=== PATIENT | male | born 1950 | race Caucasian/White ===

== ENCOUNTER 2019-11-23 02:25 | Outpatient (CLI) | payer BC, SELFPAY ==
[2019-11-23 17:02] LABS: SARS-CoV-2 RNA PCR Negative
== END 2019-11-23 02:26 | disposition home or self-care (01) ==
LOC: ANHCOVIDDT 02:25
PROVIDERS: PCP Internal Medicine; Visit Provider Internal Medicine Gastroenterology
DX: Z01.812 Encounter for preprocedural laboratory examination (principal); Z20.828 Contact with and (suspected) exposure to other viral communicable diseases
CPT/HCPCS: 87635; C9803; U0003

== ENCOUNTER 2019-11-25 01:34 | Day surgery (SDC) | payer BC, SELFPAY ==
[2019-11-15 13:55] VITALS: BMI 31.4
[2019-11-25 07:59] VITALS: BP 157/81; PULSE 79; RESP 18; TEMP 36.7; O2SAT 99
--- NOTE | 2019-11-25 08:06 | P.HP_ITS ---
History of Present Illness History of Present Illness Consent: Risks, benefits, and alternatives have been discussed and questions answered. Patient agrees to proceed with procedure. Chief complaint: Neoplasm Screening/ Hx Colon Polyps Narrative: José Weston is a 69 year old W male referred for screening colonoscopy secondary history of colonic polyps last colonoscopy was 3 years ago. [facility] Past Medical History Medical History (Updated 11/25/19 @ 08:10 by Silvano Stevens MD) Dyslipidemia History of gout Obesity Surgical History Surgical History (Updated 11/25/19 @ 08:07 by Lazarus Davenport MD) Status post tonsillectomy and adenoidectomy Social History Social History Substance use type: does not use Living arrangements: alone Meds Home Medications and Allergies Home Medications Medication Instructions Recorded Confirmed Type allopurinol 100 mg PO DAILY 11/15/19 11/15/19 History atorvastatin 40 mg PO DAILY 11/15/19 11/25/19 History Allergies Allergy/AdvReac Type Severity Reaction Status Date / Time No Known Allergies Allergy Verified 11/25/19 07:19 Vital Signs Vital Signs - 24 hr 11/25/19 07:59 Temperature 36.7 C Pulse Rate 79 Respiratory Rate 18 Blood Pressure 157/81 H Pulse Oximetry 99 Exam Const: Orientation/consciousness: patient oriented x3 Resp: Auscultation: clear to auscultation bilaterally Cardio: Rate: regular rate Rhythm: regular rhythm Heart sounds: no murmurs GI: GI Palp: Yes Soft to palpation, No Tenderness to palpation present (GI), Yes No hepatosplenomegaly present and No Palpable mass present Auscultation: normal bowel sounds Neuro: General: patient oriented x3 and no focal motor deficits Extrem: General: no pedal edema Assessment and Plan Additional Plan screening colonoscopy secondary history of colonic polyps
--- NOTE | 2019-11-25 08:10 | WPDANESEPPF ---
Anes - Initial Pre Proc Eval Procedure: Operation Date: 11/25/19 08:00 Proposed Procedures p Screening Colonoscopy - Lazarus Davenport MD Date/Time: 11/25/19 08:10 Surgeon: Lazarus Davenport MD Pre Op Diagnosis: Neoplasm Screening/ Hx Colon Polyps Patient Data Age: 69 Gender: M Height: 1.83 m Weight: 106.2 kg Last Vital Signs Temp 36.7 C 11/25/19 07:59 Pulse 79 11/25/19 07:59 Resp 18 11/25/19 07:59 BP 157/81 H 11/25/19 07:59 Pulse Ox 99 11/25/19 07:59 Allergies Allergy/AdvReac Type Severity Reaction Status Date / Time No Known Allergies Allergy Verified 11/25/19 07:19 Home Medications Medication Instructions Recorded Confirmed Type allopurinol 100 mg PO DAILY 11/15/19 11/15/19 History atorvastatin 40 mg PO DAILY 11/15/19 11/25/19 History Patient hx anesthesia problems: none Family hx anesthesia problems: none [facility] Past Medical History Medical History (Updated 11/25/19 @ 08:10 by Silvano Stevens MD) Dyslipidemia History of gout Obesity Surgical History Surgical History (Updated 11/25/19 @ 08:07 by Lazarus Davenport MD) Status post tonsillectomy and adenoidectomy Social History Social History Substance use type: does not use Living arrangements: alone Anes - Eval Final PreProcedure Day of Procedure 11/25/19 08:10 Patient weight: obese Heart: regular rate and rhythm Lungs: clear to auscultation and normal air movement Airway: Mallampati scale class II Neurological: alert and oriented Last oral intake: >/= 8 hours ASA classification: III Emergent: no Anesthetic plan: proceed Anesthesia type and monitoring: general GIVS Informed Consent: The patient's anesthetic plan and its attendant risks and benefits were discussed with the patient/family/POA. Questions were solicited and answers provided to the satisfaction of the patient/family/POA.
[2019-11-25] MEDS: LACTATED RINGERS 1,000 ML 150 ML IV CONT (08:12)
[2019-11-25] MEDS: SIMETHICONE ORAL SUSPENSION 20 MG/0.3 ML 30 ML BOTTLE 0.6 ML IRRIGATION (09:08)
[2019-11-25 09:40] VITALS: BP 88/56; PULSE 81; RESP 26; O2SAT 94
[2019-11-25 09:50] VITALS: BP 103/66; PULSE 95; RESP 24; O2SAT 94
[2019-11-25 10:00] VITALS: BP 108/72; PULSE 78; RESP 17; O2SAT 94
== END 2019-11-25 10:19 | disposition home or self-care (01) ==
PROVIDERS: PCP Internal Medicine; Visit Provider Internal Medicine Gastroenterology
PROC: 0DJD8ZZ Inspection of Lower Intestinal Tract, Via Natural or Artificial Opening Endoscopic (ICD-10-PCS; CPT 45378; principal; 2019-11-25 08:00)
DX: Z12.11 Encounter for screening for malignant neoplasm of colon (principal); D12.4 Benign neoplasm of descending colon; D12.5 Benign neoplasm of sigmoid colon; D12.8 Benign neoplasm of rectum; E78.5 Hyperlipidemia, unspecified; M10.9 Gout, unspecified; E66.9 Obesity, unspecified; Z68.31 Body mass index [BMI] 31.0-31.9, adult
CPT/HCPCS: 45385; 88305; J2370; J2704; J7120

== ENCOUNTER 2025-02-09 00:58 | Day surgery (SDC) | payer MEDICARE, SELFPAY ==
[2025-01-26 10:36] VITALS: BMI 28.5
--- OUTSIDE RECORDS SUMMARY | 2025-02-09 01:01 | XMS_ITS | Data Portability ---
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 [facility] 01/01/2023 08:45:24
--- OUTSIDE RECORDS SUMMARY | 2025-02-09 01:01 | XMS_ITS | Continuity of Care Document ---
Author Organization [place] [facility] Address [address] [place] [address] Care Team Providers Care Greek Professor Name Role Phone REMI SAAVEDRA Primary Care Provider [phone] Assessment Encounter Date Assessment Date Assessment LastModified by Organization Details LastModified Time 12/20/2024 12/20/2024 Convalescing from his hip fracture blood pressure is up a little bit probably because of the pain not going to get too excited about that just yet see me back in about 3 months with blood chemistries continue with his medications Not available 12/20/2024 22:15:31 Plan of Treatment Reminders Order Date Submit Date Provider Last Modified By Organization Details Last Modified Time Details Appointments ANY 15 026 02:00PM Remi Saavedra MD Not available Not available Not available Lab None record ed. Referral None record ed. Procedures None record ed. Surgeries None record ed. Imaging None record ed. Medication Orders None record ed. Patient TargetsNo targets recorded. Patient Instructions Encounter Date Encounter Id Patient Instructions Last Modified By Organization Details Last Modified Time 12/20/2024 [id number] eating healthy foods: care instructions [email or web address] Not available 12/20/2024 17:51:26 Reason for Referral None Reported. Results Created Date Observation Date Name Description Value Unit Range Abnormal Flag Note LastModifiedBy Organization Detail LastModifiedTime 12/10/1912/09/2024 CK (crea michael kinas e), total , serum CK (creatine kinase), total, serum 151 U/L low: 35U/Lh igh: 232U/L Not Available Not Available 12/20/2024 04:49:17 12/10/1912/09/2024 PTT (part ial throm bopla stin time) mixin g study PTT (partial thromboplast in time) mixing study 31.1 text: 25.1 - 36.5 sec Not Available Not Available 12/20/2024 04:49:12/10/1912/09/2024 proth rombi n time prothrombin time 12.2 text: 10.2 - 12.9 sec Not Available Not Available 12/20/2024 04:49:12/10/1912/09/2024 proth rombi n time INR, plasma 1.1 Recom ej d INR Thera peuti c Goals : 2.0-3 .0 Routi ne Thera py 2.5-3 .5 Mecha nical Prost hetic Valve s (High Risk) Not Available Not Available 12/20/2024 04:49:12/10/1912/09/2024 CMP, serum or plasm a glucose, qn [mass/volume ], serum or plasma 113 text: 70 - 99 mg/dL high Not Available Not Available 12/20/2024 04:49:12/10/1912/09/2024 CMP, serum or plasm a BUN (blood urea nitrogen), serum or plasma 13 text: 7 - 18 mg/dL Not Available Not Available 12/20/2024 04:49:12/10/1912/09/2024 CMP, serum or plasm a creatinine, serum or plasma 1.12 text: 0.7 - 1.3 mg/dL Not Available Not Available 12/20/2024 04:49:12/10/1912/09/2024 CMP, serum or plasm a sodium, serum or plasma 137 text: 136 - 145 mmol/L Not Available Not Available 12/20/2024 04:49:12/10/1912/09/2024 CMP, serum or plasm a potassium, serum or plasma 4.3 text: 3.5 - 5.1 mmol/L Not Available Not Available 12/20/2024 04:49:12/10/1912/09/2024 CMP, serum or plasm a chloride, serum or plasma 106 text: 97 - 115 mmol/L Not Available Not Available 12/20/2024 04:49:12/10/1912/09/2024 CMP, serum or plasm a CO2, (carbon dioxide), total, serum or plasma 26.5 text: 21 - 32 mmol/L Not Available Not Available 12/20/2024 04:49:12/10/1912/09/2024 CMP, serum or plasm a calcium, serum or plasma 9.1 text: 8.5 - 10.1 mg/dL Not Available Not Available 12/20/2024 04:49:12/10/1912/09/2024 CMP, serum or plasm a bilirubin, total, serum or plasma 0.7 text: 0.2 - 1.2 mg/dL THIS ASSAY IS NOT RECOM EJ D FOR PATIE NTS UNDER GOING TREAT MENT WITH ELTRO MBOPA G DUE TO THE POTEN TIAL FOR FALSE LY ELEVA OTF RESUL TS. Not Available Not Available 12/20/2024 04:49:12/10/1912/09/2024 CMP, serum or plasm a protein, total, serum 7.4 text: 6.4 - 8.2 g/dL Not Available Not Available 12/20/2024 04:49:12/10/1912/09/2024 CMP, serum or plasm a albumin, serum or plasma 3.9 text: 3.4 - 5.0 g/dL Not Available Not Available 12/20/2024 04:49:12/10/1912/09/2024 CMP, serum or plasm a AST/SGOT (aspartate aminotransfe rase), serum or plasma 20 U/L low: 15U/Lh igh: 37U/L Not Available Not Available 12/20/2024 04:49:12/10/1912/09/2024 CMP, serum or plasm a ALT (alanine aminotransfe rase), serum or plasma 33 U/L low: 16U/Lh igh: 60U/L Not Available Not Available 12/20/2024 04:49:17 12/10/1912/09/2024 CMP, serum or plasm a alkaline phosphatase, serum or plasma 75 U/L low: 50U/Lh igh: 136U/L Not Available Not Available 12/20/2024 04:49:17 12/10/1912/09/2024 CMP, serum or plasm a anion gap, serum or plasma 4.5 text: 2 - 10 mmol/L Not Available Not Available 12/20/2024 04:49:17 12/10/1912/09/2024 CMP, serum or plasm a BUN/creatini ne, ratio, serum 11.6 low: 6high: 26 Not Available Not Available 12/20/2024 04:49:12/10/1912/09/2024 CMP, serum or plasm a albumin/glob ulin, ratio, serum 1.1 text: 1.0 - 2.0 ratio Not Available Not Available 12/20/2024 04:49:17 12/10/1912/09/2024 CMP, serum or plasm a glomerular filtration rate/1.73 sq M predicted, qn, creatinine based formula (CKD-epi 2020), serum or plasma or blood 69 text: >90 mL/min /1.73 M2 low NOTE: eGFR is not calcu lated for patie nts <18 years of age or gende r unkno wn. This is an estim ated GFR calcu latio n using the new CKD EPI creat inine equat ion witho ut race and so does not requi re a corre ction facto r for race. This estim ated GFR shoul d not be used for calcu latin g drug doses . Not Available Not Available 12/20/2024 04:49:17 12/10/1912/09/2024 CMP, serum or plasm a lab interpretati on Abnorm al Not Available Not Available 04:49:17 12/10/1912/09/2024 CBC w/ auto diff WBC, auto, blood 16.2 text: 4.5 - 11.0 x10'3/ uL high Not Available Not Available 12/20/2024 04:49:17 12/10/1912/09/2024 CBC w/ auto diff RBC count, blood 4.64 text: 4.70 - 6.10 x10'6/ uL low Not Available Not Available 12/20/2024 04:49:17 12/10/1912/09/2024 CBC w/ auto diff hemoglobin (Hb), blood 14.6 text: 14.0 - 18.0 g/dL Not Available Not Available 12/20/2024 04:49:12/10/1912/09/2024 CBC w/ auto diff hematocrit, blood 42.6 % low: 43%hig h: 54% low Not Available Not Available 12/20/2024 04:49:12/10/1912/09/2024 CBC w/ auto diff MCV, qn (obs) 91.8 text: 80.0 - 94.0 fL Not Available Not Available 12/20/2024 04:49:12/10/1912/09/2024 CBC w/ auto diff MCH, qn (obs) 31.5 pg low: 27pghi gh: 31pg high Not Available Not Available 12/20/2024 04:49:12/10/1912/09/2024 CBC w/ auto diff mean corpuscular hemoglobin concentratio n, qn, RBC 34.3 text: 32.0 - 36.0 g/dL Not Available Not Available 12/20/2024 04:49:12/10/1912/09/2024 CBC w/ auto diff RDW 12.3 % low: 11.5%h igh: 14.5% Not Available Not Available 12/20/2024 04:49:12/10/1912/09/2024 CBC w/ auto diff platelet count, blood 179 text: 130 - 400 x10'3/ uL Not Available Not Available 12/20/2024 04:49:12/10/1912/09/2024 CBC w/ auto diff platelet mean volume, qn, blood (obs) 12.1 text: 9.3 - 12.2 fL Not Available Not Available 12/20/2024 04:49:12/10/1912/09/2024 CBC w/ auto diff differential cell count method, blood (obs) AUTOMA OTF DIFFER ENTIAL Not Available Not Available 04:49:12/10/1912/09/2024 CBC w/ auto diff neutrophils/ 100 leukocytes, automated, blood (obs) 89.4 % Not Available Not Available 12/20/2024 04:49:12/10/1912/09/2024 CBC w/ auto diff lymphocytes/ 100 leukocytes, automated, blood (obs) 6.5 % Not Available Not Available 12/20/2024 04:49:12/10/1912/09/2024 CBC w/ auto diff monocytes/10 0 leukocytes, automated, blood (obs) 3.4 % Not Available Not Available 12/20/2024 04:49:12/10/1912/09/2024 CBC w/ auto diff eosinophils/ 100 leukocytes, automated, blood (obs) 0.1 % Not Available Not Available 12/20/2024 04:49:12/10/1912/09/2024 CBC w/ auto diff basophils/10 0 leukocytes, automated, blood (obs) 0.3 % Not Available Not Available 12/20/2024 04:49:12/10/1912/09/2024 CBC w/ auto diff immature granulocytes /100 leukocytes, automated, blood (obs) 0.3 % Not Available Not Available 12/20/2024 04:49:12/10/1912/09/2024 CBC w/ auto diff neutrophils, count, blood (obs) 14.48 text: 1.80 - 7.70 x10'3/ uL high Not Available Not Available 12/20/2024 04:49:12/10/1912/09/2024 CBC w/ auto diff lymphocytes, blood (obs) 1.06 text: 1.00 - 4.80 x10'3/ uL Not Available Not Available 12/20/2024 04:49:12/10/1912/09/2024 CBC w/ auto diff monocytes, count, blood (obs) 0.55 text: 0.30 - 0.82 x10'3/ uL Not Available Not Available 12/20/2024 04:49:12/10/1912/09/2024 CBC w/ auto diff eosinophils, quant, blood 0.01 text: 0.04 - 0.54 x10'3/ uL low Not Available Not Available 12/20/2024 04:49:12/10/1912/09/2024 CBC w/ auto diff basophils, count, blood (obs) 0.05 text: 0.01 - 0.08 x10'3/ uL Not Available Not Available 12/20/2024 04:49:17 12/10/1912/09/2024 CBC w/ auto diff immature granulocytes count, blood 0.05 text: 0.00 - 0.49 x10'3/ uL Not Available Not Available 12/20/2024 04:49:17 12/10/19 25 12/09/2024 CBC w/ auto diff lab interpretati on Abnorm al Not Available Not Available 04:49:17 12/11/1912/10/2024 urina lysis , dipst ick, refle x micro collection method, unspecified specimen (obs) URINE CLEAN CATCH Not Available Not Available 04:49:18 12/11/1912/10/2024 urina lysis , dipst ick, refle x micro color, urine (obs) LIGHT YELLOW Not Available Not Available 04:49:18 12/11/1912/10/2024 urina lysis , dipst ick, refle x micro clarity of urine (obs) CLEAR Not Available Not Available 12/20/2024 04:49:18 12/11/1912/10/2024 urina lysis , dipst ick, refle x micro specific gravity, urine 1.023 low: 1.001h igh: 1.03 Not Available Not Available 12/20/2024 04:49:18 12/11/1912/10/2024 urina lysis , dipst ick, refle x micro pH, urine 6 low: 5high: 9 Not Available Not Available 12/20/2024 04:49:18 12/11/1912/10/2024 urina lysis , dipst ick, refle x micro leukocytes, count, test strip, urine (obs) NEGATI VE text: negati ve Not Available Not Available 12/20/2024 04:49:18 12/11/1912/10/2024 urina lysis , dipst ick, refle x micro nitrite, qual, urine NEGATI VE text: negati ve Not Available Not Available 12/20/2024 04:49:18 12/11/1912/10/2024 urina lysis , dipst ick, refle x micro protein random (U) NEGATI VE text: <30 mg/dL Not Available Not Available 12/20/2024 04:49:18 12/11/1912/10/2024 urina lysis , dipst ick, refle x micro glucose, qn [mass/volume ], urine NORMAL text: normal mg/dL Not Available Not Available 12/20/2024 04:49:18 12/11/1912/10/2024 urina lysis , dipst ick, refle x micro ketones, qn, test strip, urine 40 text: negati ve mg/dL abnormal Not Available Not Available 12/20/2024 04:49:18 12/11/1912/10/2024 urina lysis , dipst ick, refle x micro urobilinogen , qn, test strip, urine NORMAL text: normal mg/dL Not Available Not Available 12/20/2024 04:49:18 12/11/1912/10/2024 urina lysis , dipst ick, refle x micro bilirubin, total, quant, urine NEGATI VE text: negati ve mg/dL Not Available Not Available 12/20/2024 04:49:18 12/11/1912/10/2024 urina lysis , dipst ick, refle x micro erythrocytes , count, automated test strip, urine (obs) NEGATI VE text: negati ve Not Available Not Available 12/20/2024 04:49:18 12/11/1912/10/2024 urina lysis , dipst ick, refle x micro lab interpretati on Abnorm al Not Available Not Available 04:49:18 12/11/1912/11/2024 gluco se, QN, test strip , auto, blood glucose, qn, test strip, auto, blood 123 mg/dL low: 70mg/d Lhigh: 99mg/d L high Not Available Not Available 12/20/2024 04:49:18 12/11/1912/11/2024 gluco se, QN, test strip , auto, blood lab interpretati on Abnorm al Not Available Not Available 04:49:18 12/11/1912/10/2024 type + scree n, blood ABO/Rh AB POSITI VE Not Available Not Available 04:49:12/11/1912/10/2024 type + scree n, blood antibody screen, serum or plasma NEGATI VE Not Available Not Available 04:49:18 12/11/1912/10/2024 type + scree n, blood specimen expiration date, blood (obs) 2024,2 359 Not Available Not Available 04:49:12/11/1912/10/2024 CMP, serum or plasm a glucose, qn [mass/volume ], serum or plasma 104 text: 70 - 99 mg/dL high Not Available Not Available 12/20/2024 04:49:12/11/1912/10/2024 CMP, serum or plasm a BUN (blood urea nitrogen), serum or plasma 12 text: 7 - 18 mg/dL Not Available Not Available 12/20/2024 04:49:18 12/11/1912/10/2024 CMP, serum or plasm a creatinine, serum or plasma 0.94 text: 0.7 - 1.3 mg/dL Not Available Not Available 12/20/2024 04:49:12/11/1912/10/2024 CMP, serum or plasm a sodium, serum or plasma 137 text: 136 - 145 mmol/L Not Available Not Available 12/20/2024 04:49:12/11/1912/10/2024 CMP, serum or plasm a potassium, serum or plasma 4 text: 3.5 - 5.1 mmol/L Not Available Not Available 12/20/2024 04:49:12/11/1912/10/2024 CMP, serum or plasm a chloride, serum or plasma 106 text: 97 - 115 mmol/L Not Available Not Available 12/20/2024 04:49:12/11/1912/10/2024 CMP, serum or plasm a CO2, (carbon dioxide), total, serum or plasma 24.9 text: 21 - 32 mmol/L Not Available Not Available 12/20/2024 04:49:12/11/1912/10/2024 CMP, serum or plasm a calcium, serum or plasma 8.7 text: 8.5 - 10.1 mg/dL Not Available Not Available 12/20/2024 04:49:18 12/11/1912/10/2024 CMP, serum or plasm a bilirubin, total, serum or plasma 1.6 text: 0.2 - 1.2 mg/dL high THIS ASSAY IS NOT RECOM EJ D FOR PATIE NTS UNDER GOING TREAT MENT WITH ELTRO MBOPA G DUE TO THE POTEN TIAL FOR FALSE LY ELEVA OTF RESUL TS. Not Available Not Available 12/20/2024 04:49:18 12/11/1912/10/2024 CMP, serum or plasm a protein, total, serum 6.7 text: 6.4 - 8.2 g/dL Not Available Not Available 12/20/2024 04:49:18 12/11/1912/10/2024 CMP, serum or plasm a albumin, serum or plasma 3.4 text: 3.4 - 5.0 g/dL Not Available Not Available 12/20/2024 04:49:18 12/11/1912/10/2024 CMP, serum or plasm a AST/SGOT (aspartate aminotransfe rase), serum or plasma 20 U/L low: 15U/Lh igh: 37U/L Not Available Not Available 12/20/2024 04:49:18 12/11/1912/10/2024 CMP, serum or plasm a ALT (alanine aminotransfe rase), serum or plasma 30 U/L low: 16U/Lh igh: 60U/L Not Available Not Available 12/20/2024 04:49:18 12/11/1912/10/2024 CMP, serum or plasm a alkaline phosphatase, serum or plasma 71 U/L low: 50U/Lh igh: 136U/L Not Available Not Available 12/20/2024 04:49:18 12/11/1912/10/2024 CMP, serum or plasm a anion gap, serum or plasma 6.1 text: 2 - 10 mmol/L Not Available Not Available 12/20/2024 04:49:18 12/11/1912/10/2024 CMP, serum or plasm a BUN/creatini ne, ratio, serum 12.8 low: 6high: 26 Not Available Not Available 12/20/2024 04:49:18 12/11/1912/10/2024 CMP, serum or plasm a albumin/glob ulin, ratio, serum 1 text: 1.0 - 2.0 ratio Not Available Not Available 12/20/2024 04:49:18 12/11/1912/10/2024 CMP, serum or plasm a glomerular filtration rate/1.73 sq M predicted, qn, creatinine based formula (CKD-epi 2020), serum or plasma or blood 85 text: >90 mL/min /1.73 M2 low NOTE: eGFR is not calcu lated for patie nts <18 years of age or gende r unkno wn. This is an estim ated GFR calcu latio n using the new CKD EPI creat inine equat ion witho ut race and so does not requi re a corre ction facto r for race. This estim ated GFR shoul d not be used for calcu latin g drug doses . Not Available Not Available 12/20/2024 04:49:18 12/11/1912/10/2024 CMP, serum or plasm a lab interpretati on Abnorm al Not Available Not Available 04:49:18 12/11/1912/10/2024 CBC w/ auto diff WBC, auto, blood 11.54 text: 4.5 - 11.0 x10'3/ uL high Not Available Not Available 12/20/2024 04:49:17 12/11/1912/10/2024 CBC w/ auto diff RBC count, blood 4.6 text: 4.70 - 6.10 x10'6/ uL low Not Available Not Available 12/20/2024 04:49:17 12/11/1912/10/2024 CBC w/ auto diff hemoglobin (Hb), blood 14.4 text: 14.0 - 18.0 g/dL Not Available Not Available 12/20/2024 04:49:17 12/11/1912/10/2024 CBC w/ auto diff hematocrit, blood 42.5 % low: 43%hig h: 54% low Not Available Not Available 12/20/2024 04:49:17 12/11/1912/10/2024 CBC w/ auto diff MCV, qn (obs) 92.4 text: 80.0 - 94.0 fL Not Available Not Available 12/20/2024 04:49:12/11/1912/10/2024 CBC w/ auto diff MCH, qn (obs) 31.3 pg low: 27pghi gh: 31pg high Not Available Not Available 12/20/2024 04:49:12/11/1912/10/2024 CBC w/ auto diff mean corpuscular hemoglobin concentratio n, qn, RBC 33.9 text: 32.0 - 36.0 g/dL Not Available Not Available 12/20/2024 04:49:12/11/1912/10/2024 CBC w/ auto diff RDW 12.4 % low: 11.5%h igh: 14.5% Not Available Not Available 12/20/2024 04:49:12/11/1912/10/2024 CBC w/ auto diff platelet count, blood 139 text: 130 - 400 x10'3/ uL Not Available Not Available 12/20/2024 04:49:17 12/11/1912/10/2024 CBC w/ auto diff platelet mean volume, qn, blood (obs) 12.3 text: 9.3 - 12.2 fL high Not Available Not Available 12/20/2024 04:49:12/11/1912/10/2024 CBC w/ auto diff differential cell count method, blood (obs) AUTOMA OTF DIFFER ENTIAL Not Available Not Available 04:49:12/11/1912/10/2024 CBC w/ auto diff neutrophils/ 100 leukocytes, automated, blood (obs) 77.4 % Not Available Not Available 12/20/2024 04:49:12/11/19 25 12/10/2024 CBC w/ auto diff lymphocytes/ 100 leukocytes, automated, blood (obs) 14 % Not Available Not Available 12/20/2024 04:49:12/11/1912/10/2024 CBC w/ auto diff monocytes/10 0 leukocytes, automated, blood (obs) 6.6 % Not Available Not Available 12/20/2024 04:49:12/11/1912/10/2024 CBC w/ auto diff eosinophils/ 100 leukocytes, automated, blood (obs) 1.3 % Not Available Not Available 12/20/2024 04:49:12/11/1912/10/2024 CBC w/ auto diff basophils/10 0 leukocytes, automated, blood (obs) 0.4 % Not Available Not Available 12/20/2024 04:49:12/11/1912/10/2024 CBC w/ auto diff immature granulocytes /100 leukocytes, automated, blood (obs) 0.3 % Not Available Not Available 12/20/2024 04:49:12/11/1912/10/2024 CBC w/ auto diff neutrophils, count, blood (obs) 8.93 text: 1.80 - 7.70 x10'3/ uL high Not Available Not Available 12/20/2024 04:49:12/11/1912/10/2024 CBC w/ auto diff lymphocytes, blood (obs) 1.62 text: 1.00 - 4.80 x10'3/ uL Not Available Not Available 12/20/2024 04:49:12/11/1912/10/2024 CBC w/ auto diff monocytes, count, blood (obs) 0.76 text: 0.30 - 0.82 x10'3/ uL Not Available Not Available 12/20/2024 04:49:12/11/1912/10/2024 CBC w/ auto diff eosinophils, quant, blood 0.15 text: 0.04 - 0.54 x10'3/ uL Not Available Not Available 12/20/2024 04:49:12/11/1912/10/2024 CBC w/ auto diff basophils, count, blood (obs) 0.05 text: 0.01 - 0.08 x10'3/ uL Not Available Not Available 12/20/2024 04:49:12/11/1912/10/2024 CBC w/ auto diff immature granulocytes count, blood 0.03 text: 0.00 - 0.49 x10'3/ uL Not Available Not Available 12/20/2024 04:49:12/11/1912/10/2024 CBC w/ auto diff lab interpretati on Abnorm al Not Available Not Available 04:49:17 12/12/19 25 12/11/2024 CBC w/ auto diff WBC, auto, blood 19.2 text: 4.5 - 11.0 x10'3/ uL high Not Available Not Available 12/20/2024 04:49:18 12/12/19 25 12/11/2024 CBC w/ auto diff RBC count, blood 4.34 text: 4.70 - 6.10 x10'6/ uL low Not Available Not Available 12/20/2024 04:49:18 12/12/19 25 12/11/2024 CBC w/ auto diff hemoglobin (Hb), blood 13.7 text: 14.0 - 18.0 g/dL low Not Available Not Available 12/20/2024 04:49:18 12/12/19 25 12/11/2024 CBC w/ auto diff hematocrit, blood 40.8 % low: 43%hig h: 54% low Not Available Not Available 12/20/2024 04:49:18 12/12/1912/11/2024 CBC w/ auto diff MCV, qn (obs) 94 text: 80.0 - 94.0 fL Not Available Not Available 12/20/2024 04:49:18 12/12/1912/11/2024 CBC w/ auto diff MCH, qn (obs) 31.6 pg low: 27pghi gh: 31pg high Not Available Not Available 12/20/2024 04:49:18 12/12/1912/11/2024 CBC w/ auto diff mean corpuscular hemoglobin concentratio n, qn, RBC 33.6 text: 32.0 - 36.0 g/dL Not Available Not Available 12/20/2024 04:49:18 12/12/1912/11/2024 CBC w/ auto diff RDW 12.4 % low: 11.5%h igh: 14.5% Not Available Not Available 12/20/2024 04:49:18 12/12/1912/11/2024 CBC w/ auto diff platelet count, blood 190 text: 130 - 400 x10'3/ uL Not Available Not Available 12/20/2024 04:49:12/12/1912/11/2024 CBC w/ auto diff platelet mean volume, qn, blood (obs) 12.9 text: 9.3 - 12.2 fL high Not Available Not Available 12/20/2024 04:49:12/12/1912/11/2024 CBC w/ auto diff differential cell count method, blood (obs) AUTOMA OFT DIFFER ENTIAL Not Available Not Available 04:49:12/12/1912/11/2024 CBC w/ auto diff neutrophils/ 100 leukocytes, automated, blood (obs) 84 % Not Available Not Available 12/20/2024 04:49:12/12/1912/11/2024 CBC w/ auto diff lymphocytes/ 100 leukocytes, automated, blood (obs) 9.8 % Not Available Not Available 12/20/2024 04:49:12/12/1912/11/2024 CBC w/ auto diff monocytes/10 0 leukocytes, automated, blood (obs) 5.4 % Not Available Not Available 12/20/2024 04:49:12/12/1912/11/2024 CBC w/ auto diff eosinophils/ 100 leukocytes, automated, blood (obs) 0.1 % Not Available Not Available 12/20/2024 04:49:12/12/1912/11/2024 CBC w/ auto diff basophils/10 0 leukocytes, automated, blood (obs) 0.3 % Not Available Not Available 12/20/2024 04:49:12/12/1912/11/2024 CBC w/ auto diff immature granulocytes /100 leukocytes, automated, blood (obs) 0.4 % Not Available Not Available 12/20/2024 04:49:12/12/1912/11/2024 CBC w/ auto diff neutrophils, count, blood (obs) 16.13 text: 1.80 - 7.70 x10'3/ uL high Not Available Not Available 12/20/2024 04:49:12/12/1912/11/2024 CBC w/ auto diff lymphocytes, blood (obs) 1.88 text: 1.00 - 4.80 x10'3/ uL Not Available Not Available 12/20/2024 04:49:12/12/1912/11/2024 CBC w/ auto diff monocytes, count, blood (obs) 1.04 text: 0.30 - 0.82 x10'3/ uL high Not Available Not Available 12/20/2024 04:49:12/12/1912/11/2024 CBC w/ auto diff eosinophils, quant, blood 0.02 text: 0.04 - 0.54 x10'3/ uL low Not Available Not Available 12/20/2024 04:49:12/12/1912/11/2024 CBC w/ auto diff basophils, count, blood (obs) 0.05 text: 0.01 - 0.08 x10'3/ uL Not Available Not Available 12/20/2024 04:49:12/12/1912/11/2024 CBC w/ auto diff immature granulocytes count, blood 0.08 text: 0.00 - 0.49 x10'3/ uL Not Available Not Available 12/20/2024 04:49:12/12/1912/11/2024 CBC w/ auto diff lab interpretati on Abnorm al Not Available Not Available 04:49:12/12/1912/11/2024 CMP, serum or plasm a glucose, qn [mass/volume ], serum or plasma 107 text: 70 - 99 mg/dL high Not Available Not Available 12/20/2024 04:49:12/12/1912/11/2024 CMP, serum or plasm a BUN (blood urea nitrogen), serum or plasma 15 text: 7 - 18 mg/dL Not Available Not Available 12/20/2024 04:49:12/12/1912/11/2024 CMP, serum or plasm a creatinine, serum or plasma 0.98 text: 0.7 - 1.3 mg/dL Not Available Not Available 12/20/2024 04:49:12/12/1912/11/2024 CMP, serum or plasm a sodium, serum or plasma 135 text: 136 - 145 mmol/L low Not Available Not Available 12/20/2024 04:49:12/12/1912/11/2024 CMP, serum or plasm a potassium, serum or plasma 4.8 text: 3.5 - 5.1 mmol/L Not Available Not Available 12/20/2024 04:49:12/12/1912/11/2024 CMP, serum or plasm a chloride, serum or plasma 105 text: 97 - 115 mmol/L Not Available Not Available 12/20/2024 04:49:12/12/1912/11/2024 CMP, serum or plasm a CO2, (carbon dioxide), total, serum or plasma 21.3 text: 21 - 32 mmol/L Not Available Not Available 12/20/2024 04:49:12/12/1912/11/2024 CMP, serum or plasm a calcium, serum or plasma 8.3 text: 8.5 - 10.1 mg/dL low Not Available Not Available 12/20/2024 04:49:12/12/1912/11/2024 CMP, serum or plasm a bilirubin, total, serum or plasma 1.2 text: 0.2 - 1.2 mg/dL THIS ASSAY IS NOT RECOM EJ D FOR PATIE NTS UNDER GOING TREAT MENT WITH ELTRO MBOPA G DUE TO THE POTEN TIAL FOR FALSE LY ELEVA OTF RESUL TS. Not Available Not Available 12/20/2024 04:49:12/12/1912/11/2024 CMP, serum or plasm a protein, total, serum 6.8 text: 6.4 - 8.2 g/dL Not Available Not Available 12/20/2024 04:49:12/12/1912/11/2024 CMP, serum or plasm a albumin, serum or plasma 3.2 text: 3.4 - 5.0 g/dL low Not Available Not Available 12/20/2024 04:49:12/12/1912/11/2024 CMP, serum or plasm a AST/SGOT (aspartate aminotransfe rase), serum or plasma 23 U/L low: 15U/Lh igh: 37U/L Not Available Not Available 12/20/2024 04:49:12/12/1912/11/2024 CMP, serum or plasm a ALT (alanine aminotransfe rase), serum or plasma 27 U/L low: 16U/Lh igh: 60U/L Not Available Not Available 12/20/2024 04:49:18 12/12/1912/11/2024 CMP, serum or plasm a alkaline phosphatase, serum or plasma 71 U/L low: 50U/Lh igh: 136U/L Not Available Not Available 12/20/2024 04:49:18 12/12/1912/11/2024 CMP, serum or plasm a anion gap, serum or plasma 8.7 text: 2 - 10 mmol/L Not Available Not Available 12/20/2024 04:49:12/12/1912/11/2024 CMP, serum or plasm a BUN/creatini ne, ratio, serum 15.3 low: 6high: 26 Not Available Not Available 12/20/2024 04:49:12/12/1912/11/2024 CMP, serum or plasm a albumin/glob ulin, ratio, serum 0.9 text: 1.0 - 2.0 ratio low Not Available Not Available 12/20/2024 04:49:12/12/1912/11/2024 CMP, serum or plasm a glomerular filtration rate/1.73 sq M predicted, qn, creatinine based formula (CKD-epi 2020), serum or plasma or blood 80 text: >90 mL/min /1.73 M2 low NOTE: eGFR is not calcu lated for patie nts <18 years of age or gende r unkno wn. This is an estim ated GFR calcu latio n using the new CKD EPI creat inine equat ion witho ut race and so does not requi re a corre ction facto r for race. This estim ated GFR shoul d not be used for calcu latin g drug doses . Not Available Not Available 12/20/2024 04:49:12/12/1912/11/2024 CMP, serum or plasm a lab interpretati on Abnorm al Not Available Not Available 04:49:12/13/1912/12/2024 CMP, serum or plasm a glucose, qn [mass/volume ], serum or plasma 105 text: 70 - 99 mg/dL high Not Available Not Available 12/20/2024 04:49:18 12/13/1912/12/2024 CMP, serum or plasm a BUN (blood urea nitrogen), serum or plasma 23 text: 7 - 18 mg/dL high Not Available Not Available 12/20/2024 04:49:12/13/1912/12/2024 CMP, serum or plasm a creatinine, serum or plasma 1.12 text: 0.7 - 1.3 mg/dL Not Available Not Available 12/20/2024 04:49:12/13/1912/12/2024 CMP, serum or plasm a sodium, serum or plasma 138 text: 136 - 145 mmol/L Not Available Not Available 12/20/2024 04:49:12/13/1912/12/2024 CMP, serum or plasm a potassium, serum or plasma 3.9 text: 3.5 - 5.1 mmol/L Not Available Not Available 12/20/2024 04:49:12/13/1912/12/2024 CMP, serum or plasm a chloride, serum or plasma 107 text: 97 - 115 mmol/L Not Available Not Available 12/20/2024 04:49:12/13/1912/12/2024 CMP, serum or plasm a CO2, (carbon dioxide), total, serum or plasma 24.7 text: 21 - 32 mmol/L Not Available Not Available 12/20/2024 04:49:12/13/1912/12/2024 CMP, serum or plasm a calcium, serum or plasma 8.8 text: 8.5 - 10.1 mg/dL Not Available Not Available 12/20/2024 04:49:12/13/1912/12/2024 CMP, serum or plasm a bilirubin, total, serum or plasma 0.9 text: 0.2 - 1.2 mg/dL THIS ASSAY IS NOT RECOM EJ D FOR PATIE NTS UNDER GOING TREAT MENT WITH ELTRO MBOPA G DUE TO THE POTEN TIAL FOR FALSE LY ELEVA OTF RESUL TS. Not Available Not Available 12/20/2024 04:49:12/13/1912/12/2024 CMP, serum or plasm a protein, total, serum 6.8 text: 6.4 - 8.2 g/dL Not Available Not Available 12/20/2024 04:49:12/13/1912/12/2024 CMP, serum or plasm a albumin, serum or plasma 3.2 text: 3.4 - 5.0 g/dL low Not Available Not Available 12/20/2024 04:49:18 12/13/1912/12/2024 CMP, serum or plasm a AST/SGOT (aspartate aminotransfe rase), serum or plasma 22 U/L low: 15U/Lh igh: 37U/L Not Available Not Available 12/20/2024 04:49:18 12/13/1912/12/2024 CMP, serum or plasm a ALT (alanine aminotransfe rase), serum or plasma 23 U/L low: 16U/Lh igh: 60U/L Not Available Not Available 12/20/2024 04:49:18 12/13/1912/12/2024 CMP, serum or plasm a alkaline phosphatase, serum or plasma 65 U/L low: 50U/Lh igh: 136U/L Not Available Not Available 12/20/2024 04:49:18 12/13/1912/12/2024 CMP, serum or plasm a anion gap, serum or plasma 6.3 text: 2 - 10 mmol/L Not Available Not Available 12/20/2024 04:49:18 12/13/1912/12/2024 CMP, serum or plasm a BUN/creatini ne, ratio, serum 20.5 low: 6high: 26 Not Available Not Available 12/20/2024 04:49:18 12/13/1912/12/2024 CMP, serum or plasm a albumin/glob ulin, ratio, serum 0.9 text: 1.0 - 2.0 ratio low Not Available Not Available 12/20/2024 04:49:18 12/13/1912/12/2024 CMP, serum or plasm a glomerular filtration rate/1.73 sq M predicted, qn, creatinine based formula (CKD-epi 2020), serum or plasma or blood 69 text: >90 mL/min /1.73 M2 low NOTE: eGFR is not calcu lated for patie nts <18 years of age or gende r unkno wn. This is an estim ated GFR calcu latio n using the new CKD EPI creat inine equat ion witho ut race and so does not requi re a corre ction facto r for race. This estim ated GFR shoul d not be used for calcu latin g drug doses . Not Available Not Available 12/20/2024 04:49:18 12/13/1912/12/2024 CMP, serum or plasm a lab interpretati on Abnorm al Not Available Not Available 04:49:18 12/13/1912/12/2024 CBC w/ auto diff WBC, auto, blood 12.91 text: 4.5 - 11.0 x10'3/ uL high Not Available Not Available 12/20/2024 04:49:18 12/13/19 25 12/12/2024 CBC w/ auto diff RBC count, blood 4.18 text: 4.70 - 6.10 x10'6/ uL low Not Available Not Available 12/20/2024 04:49:18 12/13/19 25 12/12/2024 CBC w/ auto diff hemoglobin (Hb), blood 13.1 text: 14.0 - 18.0 g/dL low Not Available Not Available 12/20/2024 04:49:18 12/13/19 25 12/12/2024 CBC w/ auto diff hematocrit, blood 39 % low: 43%hig h: 54% low Not Available Not Available 12/20/2024 04:49:18 12/13/1912/12/2024 CBC w/ auto diff MCV, qn (obs) 93.3 text: 80.0 - 94.0 fL Not Available Not Available 12/20/2024 04:49:18 12/13/19 25 12/12/2024 CBC w/ auto diff MCH, qn (obs) 31.3 pg low: 27pghi gh: 31pg high Not Available Not Available 12/20/2024 04:49:18 12/13/1912/12/2024 CBC w/ auto diff mean corpuscular hemoglobin concentratio n, qn, RBC 33.6 text: 32.0 - 36.0 g/dL Not Available Not Available 12/20/2024 04:49:18 12/13/19 25 12/12/2024 CBC w/ auto diff RDW 12.7 % low: 11.5%h igh: 14.5% Not Available Not Available 12/20/2024 04:49:12/13/19 25 12/12/2024 CBC w/ auto diff platelet count, blood 145 text: 130 - 400 x10'3/ uL Not Available Not Available 12/20/2024 04:49:18 12/13/19 25 12/12/2024 CBC w/ auto diff platelet mean volume, qn, blood (obs) 12.1 text: 9.3 - 12.2 fL Not Available Not Available 12/20/2024 04:49:18 12/13/19 25 12/12/2024 CBC w/ auto diff differential cell count method, blood (obs) AUTOMA OTF DIFFER ENTIAL Not Available Not Available 04:49:12/13/1912/12/2024 CBC w/ auto diff neutrophils/ 100 leukocytes, automated, blood (obs) 69.4 % Not Available Not Available 12/20/2024 04:49:18 12/13/19 25 12/12/2024 CBC w/ auto diff lymphocytes/ 100 leukocytes, automated, blood (obs) 18.3 % Not Available Not Available 12/20/2024 04:49:18 12/13/19 25 12/12/2024 CBC w/ auto diff monocytes/10 0 leukocytes, automated, blood (obs) 7.8 % Not Available Not Available 12/20/2024 04:49:12/13/19 25 12/12/2024 CBC w/ auto diff eosinophils/ 100 leukocytes, automated, blood (obs) 3.6 % Not Available Not Available 12/20/2024 04:49:18 12/13/19 25 12/12/2024 CBC w/ auto diff basophils/10 0 leukocytes, automated, blood (obs) 0.6 % Not Available Not Available 12/20/2024 04:49:12/13/19 25 12/12/2024 CBC w/ auto diff immature granulocytes /100 leukocytes, automated, blood (obs) 0.3 % Not Available Not Available 12/20/2024 04:49:18 12/13/19 25 12/12/2024 CBC w/ auto diff neutrophils, count, blood (obs) 8.96 text: 1.80 - 7.70 x10'3/ uL high Not Available Not Available 12/20/2024 04:49:18 12/13/19 25 12/12/2024 CBC w/ auto diff lymphocytes, blood (obs) 2.36 text: 1.00 - 4.80 x10'3/ uL Not Available Not Available 12/20/2024 04:49:18 12/13/19 25 12/12/2024 CBC w/ auto diff monocytes, count, blood (obs) 1.01 text: 0.30 - 0.82 x10'3/ uL high Not Available Not Available 12/20/2024 04:49:18 12/13/19 25 12/12/2024 CBC w/ auto diff eosinophils, quant, blood 0.46 text: 0.04 - 0.54 x10'3/ uL Not Available Not Available 12/20/2024 04:49:18 12/13/19 25 12/12/2024 CBC w/ auto diff basophils, count, blood (obs) 0.08 text: 0.01 - 0.08 x10'3/ uL Not Available Not Available 12/20/2024 04:49:18 12/13/19 25 12/12/2024 CBC w/ auto diff immature granulocytes count, blood 0.04 text: 0.00 - 0.49 x10'3/ uL Not Available Not Available 12/20/2024 04:49:18 12/13/1912/12/2024 CBC w/ auto diff lab interpretati on Abnorm al Not Available Not Available 04:49:18 Result Notes None recorded. Problems Name Problem SNOMED Code Status Onset Date Resolution Date Notes Provider Name and Address Organization Details Recorded Time Screening for malignant neoplasm of prostate Active 2023 DANIEL Jackson, [place] - [facility] 4 16:09:52 Gout 64942570 Active 2023 Reese Zaman [place] null, [place] - [facility] 4 16:09:53 Hyperlipidemia 01667566 Active 2023 Reese Z[place] [facility] 4 16:09:54 Contact dermatitis 58239244 Active 2023 Reese Zaman [place], [place] - [facility] 4 16:09:57 Essential hypertension 25019078 Active 2024 Reese Zaman MA null, [place] - [facility] 5 14:54:05 Problem Notes None recorded. Medical Equipment None Reported. Allergies Allergen ID Allergen Name Allergen Category Reaction Reaction Severity Criticality Documentation Date Start Date Code Code System Note Provider Name and Address Organization Details Recorded Time 031483 mirtazapi ne medicatio n Not available Not available Not available 07/21/2023 31072 RxNorm Emely Weber MA null, [place] - [facility] 4 14:45:28 Medications Name Sig Start Date Stop Date Status Note LastModified by Organization Details LastModified Time atorvastati n 40 mg tablet TAKE 1 TABLET BY MOUTH DAILY 2024 active Not Available Not Available Not Avai lable bupropion HCl SR 150 mg tablet,12 hr sustained-r elease 12/20 completed Not Available Not Available Not Available prednisone 10 mg tablet TAKE 2 TABLETS BY MOUTH EVERY DAY FOR 5 DAYS 01/18 completed Not Available Not Available Not Available citalopram 40 mg tablet 12/20 completed Not Available Not Available Not Available clonazepam 0.5 mg tablet 07/19 completed Not Available Not Available Not Available allopurinol 100 mg tablet TAKE 1 TABLET BY MOUTH EVERY DAY 12/20 completed Not Available Not Available Not Available tramadol 50 mg tablet 12/20 completed Not Available Not Available Not Available Kenalog 40 mg/mL suspension for injection Take 2 mL every day by injection route for 1 day. 01/18 completed Not Available Not Available Not Available amoxicillin 875 mg tablet TAKE 1 TABLET BY MOUTH TWICE DAILY FOR 7 DAYS 01/18 completed Not Available Not Available Not Available famotidine 20 mg tablet TAKE 1 TABLET BY MOUTH TWICE DAILY FOR 7 DAYS 01/18 completed Not Available Not Available Not Available losartan 25 mg tablet TAKE 1 TABLET BY MOUTH EVERY DAY 2024 active Not Available Not Available Not Avai lable mirtazapine 15 mg tablet 12/20 completed Not Available Not Available Not Available Vitals Date Recorded Body height Body mass index (BMI) Body weight Heart rate Oxygen saturation Systolic And Diastolic Provider Name and Address Organization Details Last Updated DateTime 182.88 cm 29.6 kg/m2 28036.1 4 g 93 /min 97 % 148/84 mm[Hg] Tita Tejeda MA [place] - [facility]:57:44 Social History Question Answer Notes LastModified by Organizat ion Details LastModified Time Tobacco Smoking Status Never Smoker Emely WeberDANIEL null, [place] - [facility] 07/21/2023 14:46:08 Do You Have An Advance Directive? No Information n ot available 01/19/2024 Are You Blind Or Do You Have Difficulty Seeing? No Information n ot available 07/21/2023 In The 14 Days Before Symptom Onset, Have You Had Close Contact With A Laboratory-confirm ed COVID-19 While That Case Was Ill? No Information n ot available 01/19/2024 In The 14 Days Before Symptom Onset, Have You Had Close Contact With A Person Who Is Under Investigation For COVID-19 While That Person Was Ill? No Information not available 01/19/2024 Have You Been To An Area Known To Be High Risk For COVID-19? No Information not available 01/19/2024 Are You Deaf Or Do You Have Serious Difficulty Hearing? No Information not available 07/21/2023 What Type Of Diet Are You Following? REGULAR Information n ot available 01/19/2024 Are There Any Guns Present In Your Home? No Information not available 01/19/2024 What Was The Date Of Your Most Recent Tobacco Screening? 12/20/2024 Information not available 12/20/2024 What Is Your Relationship Status? Information not available 07/21/2023 Do You Use Your Seat Belt Or Car Seat Routinely? Yes Information not available 07/21/2023 Do You Have Smoke And Carbon Monoxide Detectors In Your Home? Yes Information not available 01/19/2024 Do You Use Sunscreen Routinely? Yes Information not available 01/19/2024 Has Tobacco Cessation Counseling Been Provided? No Information not available 07/19/2024 Sex: Male Functional Status Question Answer Note LastModified by Organizat ion Details LastModified Time Do you use any illicit or recreational drugs? No Information not available 07/19/2024 Do you or have you ever used any other forms of tobacco or nicotine? No Information not available 12/20/2024 What is your level of alcohol consumption? None Information not available 07/21/2023 Are you currently employed? No Information not available 01/19/2024 Are you able to care for yourself independently? Yes Information not available 07/21/2023 Mental Status Question Answer Note LastModified by Organization D etails LastModified Time Do you feel stressed (tense, restless, nervous, or anxious, or unable to sleep at night)? [id number] Information not available 07/21/2023 Family History Nothing Reported. Medical History Condition Response High Cholesterol Y Immunizations Vaccine Type Date Status Note Provider Nam e and Address Organization Details Recorded Time Influenza, split virus, quadrivalent, preservative 9 completed Reese Z[place] [facility] 01/19/2024 15:40:56 zoster recombinant 8 completed Reese [place] [facility] 01/19/2024 15:40:56 zoster recombinant 8 completed Reese [place] [facility] 01/19/2024 15:40:56 zoster recombinant 8 completed Reese [place] [facility] 01/19/2024 15:40:56 Influenza, high-dose, quadrivalent, PF 1 completed Reese [place] [facility] 01/19/2024 15:40:56 Influenza, high-dose, quadrivalent, PF 1 completed Reese [place] [facility] 01/19/2024 15:40:56 Influenza, high-dose, quadrivalent, PF 2 completed [place] [facility] 01/19/2024 15:40:56 Influenza, high-dose, quadrivalent, PF 0 completed [place] [facility] 01/19/2024 15:40:56 COVID-19, mRNA, LNP-S, PF, 30 mcg/0.3 mL dose 1 completed [place] [facility] 01/19/2024 15:40:56 COVID-19, mRNA, LNP-S, PF, 30 mcg/0.3 mL dose 1 completed [place] [facility] 01/19/2024 15:40:56 COVID-19, mRNA, LNP-S, PF, 30 mcg/0.3 mL dose 1 completed [place] [facility] 01/19/2024 15:40:56 COVID-19, mRNA, LNP-S, PF, 30 mcg/0.3 mL dose 1 completed [place] [facility] 01/19/2024 15:40:56 COVID-19, mRNA, LNP-S, PF, 30 mcg/0.3 mL dose 1 completed [place] [facility] 01/19/2024 15:40:56 COVID-19, mRNA, LNP-S, PF, 30 mcg/0.3 mL dose 1 completed [place] [facility] 01/19/2024 15:40:56 COVID-19, mRNA, LNP-S, bivalent, PF, 30 mcg/0.3 mL dose 2 completed [place] [facility] 01/19/2024 15:40:56 Influenza, high-dose, trivalent, PF 8 completed [place] [facility] 01/19/2024 15:40:56 Influenza, high-dose, trivalent, PF 7 completed [place] [facility] 01/19/2024 15:40:56 Influenza, split virus, trivalent, preservative 4 completed [place] [facility] 01/19/2024 15:40:56 Influenza, split virus, trivalent, PF 3 completed [place] [facility] 01/19/2024 15:40:56 Influenza, split virus, quadrivalent, PF 5 completed [place] [facility] 01/19/2024 15:40:56 Pneumococcal conjugate PCV21, polysaccharide [id number] conjugate, PF 5 completed Not Available [facility] 12/20/2024 14:44:02 RSV, recombinant, protein subunit RSVpreF, adjuvant reconstituted, 0.5 mL, PF 5 completed Not Available [facility] 12/20/2024 14:44:02 zoster recombinant 5 completed Not Available [facility] 12/20/2024 14:44:02 Past Encounters Encounter ID Performer Location Encounter Start Date Encounter Closed Date Diagnosis/Indication Diagnosis SNOMED-CT Code Diagnosis ICD10 Code Diagnosis IMO Codes Diagnosis Note [id number] Remi Saavedra MD [facility] [address] [place] [address] 12/20/2024 14:42:28 12/20/2024 15:54:22 Overweight in adulthood with body mass index of 25 or more but less than 30 994931701 E66.3 Z68.29 1842447783 29.6 Essential hypertension 24484845 I10 586755 Hyperlipidemia 78546780 E78.5 Gout 82817421 M10.9 Health Concerns Section Related Observation LastModified by Organization Detai ls LastModified Time None Recorded Concern Status LastModified by Organization Details LastModified Time None Recorded Payers Encounter Date Sequence Insurance Name Policy Number Policy [place] Covered Member ID [place] Member ID Guarantor Name 12/20/2024 1 [place] José Weston [id number] 3 José Weston Notes Date Note Type Note Provider Name and Address Organization Details Recorded Time 12/20/2024 text/html Hypertension looks a little bit up but he broke his hip trying to follow low-fat diet he is off the citalopram and doing fine and that has not been any gout flare-ups Remi Saavedra MD Attn: Accounting,[address] [place], [address], [place] - [facility] 12/20/2024 22:16:44
[2025-02-09 09:01] VITALS: BP 154/89; PULSE 90; RESP 16; TEMP 36.4; O2SAT 100; BMI 29.0
--- NOTE | 2025-02-09 09:01 | WPDANESEPPF ---
Anes - Initial Pre Proc Eval Procedure: Operation Date: 02/09/25 10:00 Proposed Procedures p Screening Colonoscopy - Shane Blanchard MD Date/Time: 02/09/25 09:01 Surgeon: Shane Blanchard MD Pre Op Diagnosis: Personal history of colon polyps, unspecified Patient Data Age: 74 Gender: M Height: 1.83 m Weight: 95.3 kg Allergies Allergy/AdvReac Type Severity Reaction Status Date / Time No Known Allergies Allergy Verified 01/26/25 10:36 Home Medications ?Medication ?Instructions ?Recorded ?Confirmed ?Type atorvastatin 40 mg tablet 40 mg PO DAILY 11/15/19 02/09/25 History Patient hx anesthesia problems: none Family hx anesthesia problems: none Results Review: All pre-operative results and documents have been reviewed as part of the pre-operative evaluation. [facility] Past Medical History Medical History Obesity Dyslipidemia History of gout Surgical History Surgical History Status post tonsillectomy and adenoidectomy Social History Social History Smoking status: Never smoker Alcohol intake: never Substance use: never Substance use type: does not use Living arrangements: with family Spiritual care concerns: No Anes - Eval Final PreProcedure Day of Procedure 02/09/25 09:01 Patient weight: overweight Lungs: normal air movement Airway: Mallampati scale class II Neurological: alert and oriented Last oral intake: >/= 8 hours ASA classification: II Emergent: no Anesthetic plan: proceed Anesthesia type and monitoring: general GIVS and standard monitoring Results Review: All pre-operative results and documents have been reviewed as part of the pre-operative evaluation. Hyperlipidemia, BMI 28. Informed Consent: The patient's anesthetic plan and its attendant risks and benefits were discussed with the patient/family/POA. Questions were solicited and answers provided to the satisfaction of the patient/family/POA.
--- NOTE | 2025-02-09 09:10 | PM.IMHP ---
H&P: HPI History of Present Illness Date/Time: 02/09/25 09:10 Chief Complaint: History of colon polyps Narrative: The patient has a history of colonic polyps, the last colonoscopy was 5 years ago. Review of Systems Review of Systems: All systems reviewed & are unremarkable except as noted in HPI and below PMFSH Past Medical History Medical History Obesity Dyslipidemia History of gout Surgical History Surgical History Status post tonsillectomy and adenoidectomy Social History Social History Smoking status: Never smoker Alcohol intake: never Substance use: never Substance use type: does not use Living arrangements: with family Spiritual care concerns: No Meds Home Medications and Allergies Home Medications ?Medication ?Instructions ?Recorded ?Confirmed ?Type atorvastatin 40 mg tablet 40 mg PO DAILY 11/15/19 02/09/25 History Allergies Allergy/AdvReac Type Severity Reaction Status Date / Time No Known Allergies Allergy Verified 01/26/25 10:36 Vital Signs Vital Signs - 24 hr 02/09/25 09:01 Temperature 97.6 F Pulse Rate 90 Respiratory Rate 16 Blood Pressure 154/89 H Pulse Oximetry 100 Oxygen Delivery Room Air Exam Const: General: cooperative and healthy appearing Resp: Effort & Inspection: normal respiratory effort and able to speak in complete sentences Auscultation: clear to auscultation bilaterally Cardio: Rate: regular rate Rhythm: regular rhythm GI: Inspection: normal to inspection GI Palp: No No hepatosplenomegaly present Auscultation: normal bowel sounds Rectal Exam: deferred Skin: General skin exam: normal color Psych: Appearance: grossly normal Mental Status: mental status grossly normal Assessment and Plan Assessment and plan (1) History of colonic polyps: Code(s): Z86.0100 - Personal history of colon polyps, unspecified Status: Acute Assessment and Plan: The patient is deemed a good candidate for the procedure. Consent signed. Will proceed.
[2025-02-09] MEDS: LACTATED RINGERS 1,000 ML 150 ML IV CONT (09:15)
[2025-02-09 10:24] VITALS: BP 105/67; PULSE 87; RESP 25; O2SAT 100
[2025-02-09 10:34] VITALS: BP 119/70; PULSE 79; RESP 19; O2SAT 98
[2025-02-09 10:44] VITALS: BP 140/70; PULSE 82; RESP 21; O2SAT 100
== END 2025-02-09 10:55 | disposition home or self-care (01) ==
PROVIDERS: PCP Internal Medicine; Referring Provider Internal Medicine; Visit Provider Internal Medicine Gastroenterology
PROC: 0DJD8ZZ Inspection of Lower Intestinal Tract, Via Natural or Artificial Opening Endoscopic (ICD-10-PCS; CPT 45378; principal; 2025-02-09 10:00)
DX: Z12.11 Encounter for screening for malignant neoplasm of colon (principal); Z86.0100 Personal history of colon polyps, unspecified
CPT/HCPCS: G0105; J2003; J2704; J7120